=== PATIENT | male | born 1975 | race African-American/Black ===

== ENCOUNTER 2017-04-07 08:02 | Emergency (ER) | payer SELFPAY ==
[2017-04-07] MEDS ORDERED: Bupivacaine 0.5% 10 ML VIAL ONE (08:15)
[2017-04-07] MEDS ORDERED: Lidocaine 1% (PF) 30 ML VIAL ONE (08:15)
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
[2017-04-07] MEDS ORDERED: Bacitracin Zinc 1 Packet ONE (09:12)
== END 2017-04-07 09:49 | disposition home or self-care (01) ==
LOC: ERS 08:02
DX: S61.212A Laceration without foreign body of right middle finger without damage to nail, initial encounter (principal); F17.210 Nicotine dependence, cigarettes, uncomplicated; W23.0XXA Caught, crushed, jammed, or pinched between moving objects, initial encounter
CPT/HCPCS: 64450; J2001; J3490

== ENCOUNTER 2017-04-24 09:17 | Emergency (ER) | payer SELFPAY ==
[2017-04-24 10:01] LABS: Bilirubin Negative (Negative); Blood, Urine Large (Negative); Glucose, Urine (Dipstick) Negative (Negative); Ketone, Urine Trace mg/dL (Negative); Nitrite Negative (Negative); Protein, Urine (Dipstick) 30 mg/dL (Neg-Trace)
[2017-04-24 10:04] LABS: #Basophils 0.1 thou/uL (0.0-0.2); #Eosinphils 0.1 thou/uL (0.0-0.7); #Lymphocytes 2.1 thou/uL (1.20-3.40); #Monocytes 0.8 thou/uL (0.11-0.59); #Neutrophils 5.6 thou/uL (1.40-6.50); %Basophils 0.9 % (0.0-1.0); %Lymphocytes 24.4 % (21.0-51.0); Hematocrit 54.3 % (42.0-52.0); Mean Platelet Volume 6.8 fL (7.4-10.4); Red Blood Cell (RBC) Count 5.57 mill/uL (4.70-6.10); White Blood Cell (WBC) Count 8.6 thou/uL (4.8-10.8)
[2017-04-24 10:04] LABS: Bacteria/HPF None Seen HPF (None Seen); Hyaline Casts/LPF 0-3 HYALINE CAST LPF (0-3 Hyaline); RBC/HPF GREATER THAN 50-TNTC HPF (0-3); Squamous Epithelial None Seen HPF (0-3); WBC/HPF 0-3 HPF (0-3)
[2017-04-24 10:30] LABS: ALT (SGPT) 18 U/L (8-55); AST (SGOT) 21 U/L (5-34); Alkaline Phosphatase 59 U/L (40-150); Anion Gap 15 mmol/L (10-20); BUN (Urea Nitrogen) 7 mg/dL (8.9-20.6); Bilirubin, Total 0.6 mg/dL (0.2-1.2); Calc. Creatinine Clearance 0 mL/min (70-130); Calcium 9.5 mg/dL (7.8-10.44); Carbon Dioxide 24 mmol/L (22-29); Chloride 105 mmol/L (98-107); Estimated GFR-MDRD Greater than 90; Globulin 3.7 g/dL (2.4-3.5); Protein, Total 7.9 g/dL (6.0-8.3)
== END 2017-04-24 12:21 | disposition home or self-care (01) ==
LOC: ERS 09:17
DX: R31.9 Hematuria, unspecified (principal); F17.210 Nicotine dependence, cigarettes, uncomplicated
CPT/HCPCS: 36415; 80053; 81003; 81015; 85025; 99283

== ENCOUNTER 2017-10-15 15:52 | Observation (INO) | payer SELFPAY, OTHER ==
[2017-10-15 16:11] LABS: #Monocytes 0.9 thou/uL (0.11-0.59); #Neutrophils 13.8 thou/uL (1.40-6.50); %Basophils 0.2 % (0.0-1.0); %Eosinophils 0.1 % (0.0-10.0); %Lymphocytes 11.9 % (21.0-51.0); %Monocytes 5.2 % (0.0-10.0); %Neutrophils 82.5 % (42.0-75.0); Hemoglobin 17.2 g/dL (14.0-18.0); Mean Corpuscular HGB CONC 34.8 g/dL (32.0-36.0); Mean Corpuscular Hemoglobin 32.4 pg (27.0-31.0); Mean Corpuscular Volume 93.3 fl (80.0-94.0); Mean Platelet Volume 6.6 fL (7.4-10.4); Platelet Count 308 thou/uL (130-400); RBC Distribution Width 12.6 % (11.5-14.5); Red Blood Cell (RBC) Count 5.29 mill/uL (4.70-6.10); White Blood Cell (WBC) Count 16.7 thou/uL (4.8-10.8)
[2017-10-15 16:33] LABS: ALT (SGPT) 18 U/L (8-55); AST (SGOT) 23 U/L (5-34); Acetaminophen Less than 6.0 mcg/mL (10.0-30.0); Albumin 4.5 g/dL (3.5-5.0); Alcohol Less than 10 mg/dL (Less than 10); Alkaline Phosphatase 67 U/L (40-150); Anion Gap 18 mmol/L (10-20); BUN (Urea Nitrogen) 15 mg/dL (8.9-20.6); Bilirubin, Total 0.7 mg/dL (0.2-1.2); CK (CPK) 316 U/L (30-200); Calc. Creatinine Clearance 0 mL/min (70-130); Calcium 9.9 mg/dL (7.8-10.44); Carbon Dioxide 21 mmol/L (22-29); Chloride 101 mmol/L (98-107); Estimated GFR-MDRD 82; Globulin 3.6 g/dL (2.4-3.5); Glucose 84 mg/dL (70-105); Potassium 4.2 mmol/L (3.5-5.1); Protein, Total 8.1 g/dL (6.0-8.3); Salicylate Less than 8.0 mg/dL (15.0-30.0); Sodium 136 mmol/L (136-145)
[2017-10-15 17:19] LABS: Bilirubin Small (Negative); Blood, Urine Negative (Negative); Clarity CLEAR (Clear); Glucose, Urine (Dipstick) Negative (Negative); Leukocyte Negative (Negative); Nitrite Negative (Negative); Protein, Urine (Dipstick) Negative (Neg-Trace); Specific Gravity, Urine 1.022 (1.002-1.036); Urobilinogen 0.2 mg/dL (0.2-1.0); pH, Urine 5.5 (5.0-9.0)
[2017-10-15 17:29] LABS: Amphetamine Not Detected (NotDetected); Barbiturates Screen Not Detected (NotDetected); Benzodiazepine Screen Detected (NotDetected); Cocaine Metabolite Screen Detected (NotDetected); Medtox Control Line Valid? VALID (VALID); Medtox Reader # READER 4; Methadone Not Detected (NotDetected); Methamphetamine Not Detected (NotDetected); Opiate Screen Not Detected (NotDetected); Oxycodone Screen Not Detected (NotDetected); Phencyclidine (PCP) Not Detected (NotDetected); THC/Cannabinoid Screen Detected (NotDetected); Tricyclic Screen Not Detected (NotDetected)
[2017-10-15] MEDS ORDERED: Lorazepam 2 MG/ML VIAL ONE (18:23)
--- NOTE | 2017-10-15 18:46 | PDOC.FPRHP ---
- History of Present Illness Chief Complaint: Chest pain History of Present Illness: Patient comes in for evaluation of left sided chest pain which started this afternoon about 3pm after he took 3 tabs of advil and 20 of his son's anti- seizure medication. He also took cocaine at 11am. He states he feels he is alone in life and was trying to kill himself. He describes the chest pain as 8/ 10 at worst, 6/10 at time of exam ("just a little"), dull ache on the left side of the chest. He has never had anything like this before. Nothing made the pain feel better or worse, exertion had no effect on the chest pain. ED Course: EKG, trop negative - Allergies/Adverse Reactions Allergies Allergy/AdvReac Type Severity Reaction Status Date / Time No Known Allergies Allergy Verified 10/15/17 23:05 - Home Medications Medication Instructions Recorded Confirmed Type No Known [No Known] 10/15/17 10/15/17 History Comments: no home meds - History PMHx: none PSHx: none FHx:mother laryngeal cancer, father lung cancer Social: 1/2 ppd smoker 30 years, 2 beers a day, cocaine & marijuana - Review of Systems ROS unobtainable: due to mental status (Patient is tearful and easily distractable) General: denies: fever/chills, weight/appetite/sleep changes, night sweats, fatigue Eyes: denies: eye pain, vision changes ENT: denies: nasal congestion, rhinorrhea Respiratory: denies: cough, congestion, shortness of breath Cardiovascular: reports: chest pain, palpitation. denies: edema Gastrointestinal: denies: nausea, vomiting, diarrhea Genitourinary: denies: dysuria, polyuria Skin: denies: rashes, lesions Musculoskeletal: denies: pain, arthritis/arthralgias Neurological: denies: numbness, weakness Psychological: reports: anxiety, depression - Vital signs BP: 128/82 HR: 85 RR: 16 Tmax: 98.8 Pox: 98% on RA Wt: 70.3 - Physical Exam Constitutional: awake, alert and oriented, well developed -Constitutional: tearful at time of examination HEENT: normocephalic and atraumatic, PERRLA, EOMI, MMM Neck: supple, FROM Heart: RRR, normal S1/S2, no murmurs/rubs/gallops Lungs: CTAB, no respiratory distress, good air movement Abdomen: soft, non-tender, bowel sounds present, no masses/distention Musculoskeletal: normal structure, ROM grossly normal Neurological: no focal deficit, CN II-XII intact Skin: no rash/lesions, capillary refill <2 seconds Heme/Lymphatic: no unusual bruising or bleeding Psychiatric: normal mood and affect FMR H&P: Results - Labs Result Diagrams: 10/15/17 16:02 10/15/17 16:02 Lab results: WBC 16.7 thou/uL (4.8-10.8) H 10/15/17 16:02 Hgb 17.2 g/dL (14.0-18.0) 10/15/17 16:02 Hct 49.4 % (42.0-52.0) 10/15/17 16:02 MCV 93.3 fl (80.0-94.0) 10/15/17 16:02 Plt Count 308 thou/uL (130-400) 10/15/17 16:02 Neutrophils % 82.5 % (42.0-75.0) H 10/15/17 16:02 Sodium 136 mmol/L (136-145) 10/15/17 16:02 Potassium 4.2 mmol/L (3.5-5.1) 10/15/17 16:02 Chloride 101 mmol/L (98-107) 10/15/17 16:02 Carbon Dioxide 21 mmol/L (22-29) L 10/15/17 16:02 BUN 15 mg/dL (8.9-20.6) 10/15/17 16:02 Creatinine 1.19 mg/dL (0.6-1.3) 10/15/17 16:02 Glucose 84 mg/dL (70-105) 10/15/17 16:02 Calcium 9.9 mg/dL (7.8-10.44) 10/15/17 16:02 Total Bilirubin 0.7 mg/dL (0.2-1.2) 10/15/17 16:02 AST 23 U/L (5-34) 10/15/17 16:02 ALT 18 U/L (8-55) 10/15/17 16:02 Alkaline Phosphatase 67 U/L (40-150) 10/15/17 16:02 Creatine Kinase 316 U/L (30-200) H 10/15/17 16:02 Serum Total Protein 8.1 g/dL (6.0-8.3) 10/15/17 16:02 Albumin 4.5 g/dL (3.5-5.0) 10/15/17 16:02 Urine Ketones 40 mg/dL (Negative) H 10/15/17 16:50 Urine Blood Negative (Negative) 10/15/17 16:50 Urine Nitrite Negative (Negative) 10/15/17 16:50 Ur Leukocyte Esterase Negative (Negative) 10/15/17 16:50 FMR H&P: A/P - Problem List (1) Cocaine abuse Current Visit: Yes Status: Acute Code(s): F14.10 - COCAINE ABUSE, UNCOMPLICATED (2) Chest pain Current Visit: Yes Status: Acute Code(s): R07.9 - CHEST PAIN, UNSPECIFIED (3) Suicidal overdose Current Visit: Yes Status: Acute Code(s): T50.902A - POISONING BY UNSP DRUG/ MEDS/BIOL SUBST, SELF-HARM, INIT - Plan # Chest pain - ekg, initial trop (-) - will trend trop - took cocaine at 1100 # Overdose - took 3 pills advil -salicylate, acetaminophen levels low -re-check in 6 hours - took ~20 pills lamictal - called poison control, rec'd monitorring for hypotension otherwise symptomatic care # Suicidal Ideation - denies previous attempts - Consult [facility] in AM, anticipate inpatient treatment # Code - full # PPx - SCD, lovenox FMR H&P: Upper Level - Pertinent history 42M with no PMH or psych history presented for cc of chest pain starting at about 1500. At 1100, he took cocaine. At 1500, took 3 tab of advil and 20 tab of lamictal. He states he did it because he wanted to kill himself. He is having difficulty with his family and . In the ER, he describes chest pain, left sided, dull, nothing makes it worst or better. ED: Received ativan Social: 1/2 ppd smoker for 30 year, 2 beer a day, abuses cocaine and marijuana ROS: Gen: Tearful, distractable CV: Endorses chest pain, palpitation Psych: Endorse anxiety, depression - Pertinent findings BP 128/82. HR 85. RR 16. Tmax 98.8, 98% on RA, Wt 70.3 kg Gen: Awake, grossly alert/oriented, tearful HEENT: Normocephalic, PERRL, MMM Neck: Supple CV: RRR with no m/g/r. Not tender to palpation. Resp: CTAB, non labored breathing GI: Soft abd, normoactive Neuro: No focal deficit, CN II-XII intact Psych: Tearful mood, depressed affect - Plan Date/Time: 10/15/171845 I, [Christopher Ly], have evaluated this patient and agree with findings/plan as outlined by technology risk intern resident. Pertinent changes/additions are listed here. 1. Chest pain - Etiology includes cocaine overdose versus ischemic - Trend trop/EKG. Initial are negative - Transfer to tele. 2. Drug overdose - Recheck salicylate and tylenol level - Per poison control, main concern with lamictal is chypotension. Will monitor on tele. 3. Suicide attempt - Consult [facility] in morning once medically cleared 4. Full code, lovenox
[2017-10-15 18:51] LABS: Troponin I Less than 0.010 ng/mL (< 0.028)
[2017-10-15 21:27] LABS: Troponin I Less than 0.010 ng/mL (< 0.028)
[2017-10-15] MEDS ORDERED: Acetaminophen 325 MG TAB PO PRN (21:29)
[2017-10-15] MEDS ORDERED: Enoxaparin Sodium 40 MG/0.4 ML SYRINGE SC SCH (21:29)
[2017-10-15 21:38] LABS: Acetaminophen Less than 6.0 mcg/mL (10.0-30.0); Salicylate Less than 8.0 mg/dL (15.0-30.0)
[2017-10-15 22:19] VITALS: BMI 21.7
[2017-10-16 00:15] LABS: Troponin I Less than 0.010 ng/mL (< 0.028)
[2017-10-16 06:01] LABS: #Basophils 0.1 thou/uL (0.0-0.2); #Eosinphils 0.2 thou/uL (0.0-0.7); #Lymphocytes 2.6 thou/uL (1.20-3.40); #Monocytes 0.8 thou/uL (0.11-0.59); %Basophils 0.7 % (0.0-1.0); %Eosinophils 2.4 % (0.0-10.0); %Lymphocytes 34.1 % (21.0-51.0); %Monocytes 10.3 % (0.0-10.0); %Neutrophils 52.5 % (42.0-75.0); Hemoglobin 16.9 g/dL (14.0-18.0); Mean Corpuscular HGB CONC 32.4 g/dL (32.0-36.0); Mean Corpuscular Hemoglobin 30.5 pg (27.0-31.0); Mean Corpuscular Volume 94.3 fl (80.0-94.0); Mean Platelet Volume 6.8 fL (7.4-10.4); Platelet Count 292 thou/uL (130-400); RBC Distribution Width 12.7 % (11.5-14.5); Red Blood Cell (RBC) Count 5.53 mill/uL (4.70-6.10); White Blood Cell (WBC) Count 7.7 thou/uL (4.8-10.8)
[2017-10-16 06:10] LABS: ALT (SGPT) 16 U/L (8-55); AST (SGOT) 19 U/L (5-34); Albumin 4.1 g/dL (3.5-5.0); Alkaline Phosphatase 59 U/L (40-150); Anion Gap 11 mmol/L (10-20); BUN (Urea Nitrogen) 12 mg/dL (8.9-20.6); Bilirubin, Total 0.7 mg/dL (0.2-1.2); Calc. Creatinine Clearance 71 mL/min (70-130); Calcium 9.5 mg/dL (7.8-10.44); Carbon Dioxide 28 mmol/L (22-29); Chloride 103 mmol/L (98-107); Estimated GFR-MDRD 74; Globulin 3.4 g/dL (2.4-3.5); Glucose 82 mg/dL (70-105); Potassium 4.6 mmol/L (3.5-5.1); Protein, Total 7.5 g/dL (6.0-8.3); Sodium 137 mmol/L (136-145)
[2017-10-16] MEDS ORDERED: Aspirin 325 MG TAB PO SCH (09:00)
[2017-10-16 12:14] VITALS: BP 153/89; TEMP 97.2
--- NOTE | 2017-10-18 00:41 | DIS-2 ---
DATE OF ADMISSION: 10/15/2017 DATE OF DISCHARGE: 10/16/2017 ADMITTING RESIDENT: Jules Wray MD DISCHARGE RESIDENT: Cyndy Eckert MD ATTENDING: Dr. Shea CONSULTS: [facility]. PROCEDURES: None. IMAGING: None. PRIMARY DIAGNOSES: 1. Drug overdose. 2. Suicide attempt. 3. Polysubstance abuse. 4. Atypical chest pain. DISCHARGE MEDICATIONS: None. DISCONTINUED MEDICATIONS: None. HISTORY OF PRESENT ILLNESS AND HOSPITAL COURSE: This is a 42-year-old male with a history of polysub stance abuse, who presented to the ED after a suicide attempt with 3 Advil and 20 Lamictal a couple o f hours after using cocaine. The patient reports increased stress in his life, particularly at home. The patient is remorseful and denies any current suicidal ideation, homicidal ideation, or auditory or visual hallucinations. The patient did report some chest pain that was just a small dull ache at the left side of his chest that nothing made feel better or worse once not affected by exertion. Th e patient had troponin checks that were negative x3 and he had an EKG done that was normal. The gaurav ent was monitored on telemetry and had no signs of arrhythmia. Due to the Lamictal that the patient took, Poison Control's recommendation was to monitor for hypotension; however, the patient never show ed any signs of hypotension throughout his hospitalization. The patient did have positive benzos, co bia, and cannabinoids on his UDS. The patient had received 0.5 mg of Ativan, so this is likely whe re the benzos came from. However, the opioids and the cocaine were likely true positives. The jaquan nt was medically cleared and then was evaluated by [facility] who deemed that the patient was safe to go [place] and follow up with [facility] outpatient and the patient was agreeable to this and was given information for followup. DISPOSITION: Stable. DISCHARGE INSTRUCTIONS: 1. Location: Home. 2. Diet: Regular. 3. Activity: As tolerated. 4. Follow up with [facility] within 1 week and establish care at [facility] within 1-2 weeks.
== END 2017-10-16 12:50 | disposition home or self-care (01) ==
LOC: ERS 15:52 → INTOOBSV 17:50 → 2NO 17:50
PROVIDERS: ADMIT Family Medicine; ATTEND Family Medicine
DX: T39.312A Poisoning by propionic acid derivatives, intentional self-harm, initial encounter (principal); T42.6X2A Poisoning by other antiepileptic and sedative-hypnotic drugs, intentional self-harm, initial encounter; R07.89 Other chest pain; F14.10 Cocaine abuse, uncomplicated; F12.10 Cannabis abuse, uncomplicated; F17.210 Nicotine dependence, cigarettes, uncomplicated
CPT/HCPCS: 36415; 80053; 80306; 80307; 81003; 82550; 84443; 84484; 85025; 93005; 94760; 96372; 96374; G0378; J1650; J2060

== ENCOUNTER 2021-12-17 11:47 | Emergency (ER) | payer SELFPAY ==
[2021-12-17 12:32] LABS: #Eosinphils 0.4 thou/uL (0.0-0.7); #Lymphocytes 2.9 thou/uL (1.20-3.40); #Monocytes 0.8 thou/uL (0.11-0.59); #Neutrophils 5.9 thou/uL (1.40-6.50); %Basophils 0.4 % (0.0-1.0); %Eosinophils 3.9 % (0.0-10.0); %Monocytes 7.6 % (0.0-10.0); %Neutrophils 59.1 % (42.0-75.0); Hemoglobin 17.1 g/dL (14.0-18.0); Mean Corpuscular HGB CONC 33.5 g/dL (32.0-36.0); Mean Corpuscular Hemoglobin 32.2 pg (27.0-31.0); Mean Platelet Volume 7.1 fL (7.4-10.4); Platelet Count 282 thou/uL (130-400); RBC Distribution Width 12.6 % (11.5-14.5); Red Blood Cell (RBC) Count 5.31 mill/uL (4.70-6.10)
[2021-12-17] MEDS ORDERED: Acetaminophen 500 MG TAB ONE (12:40)
[2021-12-17 12:57] LABS: ALT (SGPT) 19 U/L (8-55); AST (SGOT) 20 U/L (5-34); Albumin 4.3 g/dL (3.5-5.0); Alkaline Phosphatase 68 U/L (40-110); Anion Gap 13 mmol/L (10-20); BUN (Urea Nitrogen) 12 mg/dL (8.9-20.6); Bilirubin, Total 0.9 mg/dL (0.2-1.2); Calc. Creatinine Clearance 0 mL/min (70-130); Calcium 9.6 mg/dL (7.8-10.44); Carbon Dioxide 26 mmol/L (22-29); Chloride 106 mmol/L (98-107); Globulin 3.4 g/dL (2.4-3.5); Glucose 106 mg/dL (70-105); Lipase 23 U/L (8-78); Potassium 4.2 mmol/L (3.5-5.1); Protein, Total 7.7 g/dL (6.0-8.3); Sodium 141 mmol/L (136-145)
== END 2021-12-17 15:27 | disposition home or self-care (01) ==
LOC: ERS 11:47
DX: R07.2 Precordial pain (principal); I10 Essential (primary) hypertension; R94.31 Abnormal electrocardiogram [ECG] [EKG]; F17.210 Nicotine dependence, cigarettes, uncomplicated
CPT/HCPCS: 36415; 71045; 80053; 83690; 84484; 85025; 93005; 94760

== ENCOUNTER 2022-01-10 03:49 | Emergency (ER) | payer SELFPAY ==
[2022-01-10 04:29] LABS: #Basophils 0.1 thou/uL (0.0-0.2); #Eosinphils 0.1 thou/uL (0.0-0.7); #Lymphocytes 2.4 thou/uL (1.20-3.40); #Monocytes 1.3 thou/uL (0.11-0.59); #Neutrophils 11.6 thou/uL (1.40-6.50); %Basophils 0.4 % (0.0-1.0); %Eosinophils 0.6 % (0.0-10.0); %Lymphocytes 15.5 % (21.0-51.0); %Monocytes 8.6 % (0.0-10.0); %Neutrophils 74.9 % (42.0-75.0); Hemoglobin 16.9 g/dL (14.0-18.0); Mean Corpuscular HGB CONC 34.3 g/dL (32.0-36.0); Mean Corpuscular Hemoglobin 32.8 pg (27.0-31.0); Mean Corpuscular Volume 95.7 fL (78.0-98.0); Platelet Count 311 thou/uL (130-400); RBC Distribution Width 12.5 % (11.5-14.5); Red Blood Cell (RBC) Count 5.14 mill/uL (4.70-6.10); White Blood Cell (WBC) Count 15.5 thou/uL (4.8-10.8)
[2022-01-10 04:45] LABS: Bacteria/HPF None Seen HPF (None Seen); Bilirubin Negative (Negative); Blood, Urine 1+ (Negative); Clarity Clear (Clear); Glucose, Urine (Dipstick) Normal (Negative); Ketone, Urine 40 mg/dL (Negative); Leukocyte Negative Leu/uL (Negative); Nitrite Negative (Negative); Protein, Urine (Dipstick) 20 mg/dL (Neg-Trace); RBC/HPF None Seen HPF (0-3); Specific Gravity, Urine 1.026 (1.002-1.036); Squamous Epithelial None Seen HPF (0-3); Urobilinogen Normal mg/dL (Less than 2); WBC/HPF 0-3 HPF (0-3); pH, Urine 5.5 (5.0-9.0)
[2022-01-10 04:46] LABS: Acetaminophen Less than 10.0 mcg/mL (10.0-30.0); Alcohol Less than 10 mg/dL (Less than 10); CK (CPK) 598 U/L (30-200); Salicylate Less than 8.0 mg/dL (15.0-30.0)
[2022-01-10 04:47] LABS: ALT (SGPT) 22 U/L (8-55); AST (SGOT) 26 U/L (5-34); Albumin 4.2 g/dL (3.5-5.0); Alkaline Phosphatase 62 U/L (40-110); Anion Gap 15 mmol/L (10-20); BUN (Urea Nitrogen) 13 mg/dL (8.9-20.6); Bilirubin, Total 0.9 mg/dL (0.2-1.2); Calc. Creatinine Clearance 0 mL/min (70-130); Calcium 9.6 mg/dL (7.8-10.44); Carbon Dioxide 25 mmol/L (22-29); Chloride 100 mmol/L (98-107); Estimated GFR 85; Glucose 92 mg/dL (70-105); Protein, Total 8.2 g/dL (6.0-8.3); Sodium 136 mmol/L (136-145)
[2022-01-10 04:53] LABS: Amphetamine Not Detected (NotDetected); Barbiturates Screen Not Detected (NotDetected); Benzodiazepine Screen Not Detected (NotDetected); Cocaine Metabolite Screen Detected (NotDetected); Methadone Not Detected (NotDetected); Methamphetamine Not Detected (NotDetected); Opiate Screen Not Detected (NotDetected); Oxycodone Screen Not Detected (NotDetected); Phencyclidine (PCP) Not Detected (NotDetected); THC/Cannabinoid Screen Detected (NotDetected); Tricyclic Screen Not Detected (NotDetected)
== END 2022-01-10 07:50 | disposition home or self-care (01) ==
LOC: ERS 03:49
DX: F43.20 Adjustment disorder, unspecified (principal); F17.210 Nicotine dependence, cigarettes, uncomplicated
CPT/HCPCS: 36415; 80053; 80306; 80307; 81003; 81015; 82550; 84443; 85025; 99285

== ENCOUNTER 2022-08-18 14:38 | Emergency (ER) | payer SELFPAY ==
[2022-08-18 16:15] LABS: #Eosinphils 0.3 thou/uL (0.0-0.7); #Lymphocytes 1.8 thou/uL (1.20-3.40); #Neutrophils 7.5 thou/uL (1.40-6.50); %Basophils 0.3 % (0.0-1.0); %Eosinophils 2.8 % (0.0-10.0); %Lymphocytes 16.9 % (21.0-51.0); %Monocytes 9.5 % (0.0-10.0); %Neutrophils 70.5 % (42.0-75.0); Hemoglobin 16.7 g/dL (14.0-18.0); Mean Corpuscular HGB CONC 33.3 g/dL (32.0-36.0); Mean Corpuscular Hemoglobin 32.6 pg (27.0-31.0); Mean Corpuscular Volume 97.6 fl (78.0-98.0); Mean Platelet Volume 6.9 fL (7.4-10.4); Platelet Count 334 10x3/uL (130-400); RBC Distribution Width 12.8 % (11.5-14.5); Red Blood Cell (RBC) Count 5.14 mill/uL (4.70-6.10); White Blood Cell (WBC) Count 10.6 10x3/uL (4.8-10.8)
[2022-08-18 16:38] LABS: ALT (SGPT) 12 U/L (8-55); AST (SGOT) 16 U/L (5-34); Alkaline Phosphatase 68 U/L (40-110); Anion Gap 14 mmol/L (10-20); BUN (Urea Nitrogen) 11 mg/dL (8.9-20.6); Bilirubin, Total 0.4 mg/dL (0.2-1.2); Calc. Creatinine Clearance 0 mL/min (70-130); Calcium 9.6 mg/dL (7.8-10.44); Carbon Dioxide 30 mmol/L (22-29); Chloride 103 mmol/L (98-107); Estimated GFR 70; Globulin 4.2 g/dL (2.4-3.5); Glucose 112 mg/dL (70-105); Potassium 4.6 mmol/L (3.5-5.1); Protein, Total 8.2 g/dL (6.0-8.3); Sodium 142 mmol/L (136-145)
[2022-08-18] MEDS ORDERED: Lidocaine 1% w/Epinephrine 1:100K 20 ML VIAL ONE (17:48)
== END 2022-08-18 18:56 | disposition home or self-care (01) ==
LOC: ERS 14:38
DX: L02.214 Cutaneous abscess of groin (principal); I10 Essential (primary) hypertension; F17.210 Nicotine dependence, cigarettes, uncomplicated
CPT/HCPCS: 10060; 36415; 80053; 83605; 85025

== ENCOUNTER 2022-10-09 05:24 | Emergency (ER) | payer SELFPAY | END 2022-10-09 06:20 | disposition left against medical advice (07) | LOC: ERS 05:24 | DX: Z53.21 Procedure and treatment not carried out due to patient leaving prior to being seen by health care provider (principal) ==

== ENCOUNTER 2024-03-21 02:29 | Emergency (ER) | payer SELFPAY | END 2024-03-21 03:56 | disposition home or self-care (01) | LOC: ERS 02:29 | DX: M79.641 Pain in right hand (principal); R21 Rash and other nonspecific skin eruption; I10 Essential (primary) hypertension; F17.210 Nicotine dependence, cigarettes, uncomplicated; W22.8XXA Striking against or struck by other objects, initial encounter; Y93.89 Activity, other specified | CPT/HCPCS: 99283 ==